=== PATIENT | female | born 1970 | race Caucasian/White ===

== ENCOUNTER 2017-08-27 09:32 | Emergency (ER) | payer SELFPAY ==
[~2017-08-27] VITALS: Ht 167.6 cm; Wt 81.6 kg
[2017-08-27] MEDS ORDERED: ONDA4TAB8 SL (10:14)
--- NOTE | 2017-08-27 10:14 | ED Headache ---
General Chief Complaint: Head/Cervical Problems Stated Complaint: CHA/NAUSEA Nursing Triage Note: PATIENT AMBULATED TO ROOM 6 CO OF [facility]. HAS HX OF MIGRANES Nursing Sepsis Screen: No Definite Risk Source: patient Exam Limitations: no limitations History of Present Illness Time seen by provider: 10:03 Initial Comments This 47-year-old woman presents to the emergency room ambulatory with complaints of posterior headache that started at around 08:00. She has associated nausea. This is not unusual for her headaches. She does have a history of migraines. She has not taken any medications. No vision changes. Allergies and Home Medications Allergies Uncoded Allergies: HAY FEVER (Allergy, Mild, 08/27/17) Home Medications Ondansetron 4 Mg Tab.rapdis, 4 MG SL Q4H PRN for NAUSEA/VOMITING-1ST LINE, #10 Prescribed by: UNIQUE HARPER on 08/27/17 1014 Constitutional: no symptoms reported Eyes: No Symptoms Reported Ears, Nose, Mouth, Throat: no symptoms reported Respiratory: no symptoms reported Cardiovascular: no symptoms reported Gastrointestinal: see HPI Genitourinary: no symptoms reported : No Musculoskeletal: no symptoms reported Skin: no symptoms reported Psychiatric/Neurological: See HPI Past Bcgkbws-Mgktko-Gwcqpf Hx Patient Social History Alcohol Use: Past History Recreational Drug Use: No Smoking Status: Former Smoker Recent Foreign Travel: No Contact w/Someone Who Travel: No Recent Infectious Disease Expo: No Recent Hopitalizations: No Physical Abuse: No Sexual Abuse: No Mistreated: No Fear: No Seasonal Allergies Seasonal Allergies: Yes Surgeries History of Surgeries: No Respiratory History of Respiratory Disorde: No Cardiovascular History of Cardiac Disorders: No Neurological History of Neurological Disord: Yes Neurological Disorders: Headaches /Migraines Reproductive System : No (DEPO SHOT) Genitourinary History of Genitourinary Disor: No Gastrointestinal History of Gastrointestinal Di: No Musculoskeletal History of Musculoskeletal Dis: No Endocrine History of Endocrine Disorders: No HEENT History of HEENT Disorders: No Cancer History of Cancer: No Psychosocial History of Psychiatric Problem: Yes Behavioral Health Disorders: Anxiety, Depression Suicide Risk Score: 0 Blood Transfusions History of Blood Disorders: No Physical Exam Vital Signs Vital Sign - Last 12Hours 08/27/17 09:39 Temp 98.6 Pulse 92 Resp 20 B/P (MAP) 140/92 Pulse Ox 98 O2 Delivery Room Air Capillary Refill : Less Than 3 Seconds General Appearance: WD/WN, no apparent distress HEENT: PERRL/EOMI, normal ENT inspection Neck: normal inspection, other (muscle tension and tenderness in the paraspinous muscles of the neck) Cardiovascular: regular rate, rhythm, no edema, no murmur Respiratory: lungs clear, normal breath sounds, no respiratory distress, no accessory muscle use Extremities: normal inspection, no pedal edema Psychiatric: alert, oriented x 3 Crainal Nerves: normal hearing, normal speech Motor/Sensory: no motor deficit, no sensory deficit Skin: normal color, warm/dry Progress/Results/Core Measures Results/Orders My Orders Orders - UNIQUE ELDER MD Ondansetron Oral Dissolve Tab (Zofran (08/27/17 10:15) Medications Given in ED Current Medications Medications Dose Ordered Sig/Martín Route Start Time Stop Time Status Last Admin Dose Admin Ondansetron HCl 8 mg ONCE ONCE PO 08/27/17 10:15 08/27/17 10:16 DC 08/27/17 10:20 8 MG Vital Signs/I&O Vital Sign - Last 12Hours 08/27/17 08/27/17 09:39 10:22 Temp 98.6 98.6 Pulse 92 92 Resp 20 20 B/P (MAP) 140/92 Pulse Ox 98 98 O2 Delivery Room Air Blood Pressure Mean: 108 Progress Note : Progress Note Patient appears to have a tension headache today typical of her prior headaches. She has associated nausea which she requested a treat. Zofran sublingual was administered. Patient declined Toradol injection and preferred to take oral medications once her nausea was controlled. She is newer to the area and does not have a primary care provider. She was advised to establish with a primary care provider soon as possible. Departure Impression Impression: Primary Impression: Tension type headache Qualified Codes: G44.209 - Tension-type headache, unspecified, not intractable Additional Impression: Nausea Disposition: 01 HOME, SELF-CARE Condition: Improved Departure-Patient Inst. Decision time for Depature: 10:10 Referrals: NO,LOCAL PHYSICIAN (PCP/Family) Primary Care Physician Patient Instructions: Tension Headache (DC) Add. Discharge Instructions: Uses Zofran (ondansetron) as prescribed for nausea and vomiting. You may take ibuprofen up to 800 mg every 8 hours as needed for pain. Add Tylenol (acetaminophen) up to 1000 mg every 6 hours as needed for additional pain relief. Establish with a primary care provider as soon as possible to discuss migraine prevention and management. All discharge instructions reviewed with patient and/or family. Voiced understanding. Scripts Ondansetron (Zofran Odt) 4 Mg Tab.rapdis 4 MG SL Q4H Y for NAUSEA/VOMITING-1ST LINE, #10 TAB Prov: UNIQUE ELDER MD 08/27/17 Work/School Note: Work Release Form Date Seen in the Emergency Department: Aug 27, 2017 Return to Work: Aug 28, 2017 Restrictions: No Restrictions UNIQUE ELDER MD Aug 27, 2017 10:14
[2017-08-27] MEDS ORDERED: ONDANSETRON 4 MG (ZOFRAN) ORAL DISSOLVE TAB PO ONE (10:15)
[2017-08-27 10:22] VITALS: BP 140/92
== END 2017-08-27 10:22 | disposition home or self-care (01) ==
LOC: ER 09:38
DX: G44.209 Tension-type headache, unspecified, not intractable (principal); R11.0 Nausea; F41.9 Anxiety disorder, unspecified; F32.9 Major depressive disorder, single episode, unspecified; Z87.891 Personal history of nicotine dependence
CPT/HCPCS: 99283

== ENCOUNTER 2017-10-29 19:58 | Emergency (ER) | payer SELFPAY ==
[~2017-10-29] VITALS: Ht 167.6 cm; Wt 83.0 kg
[~2017-10-29 19:58] MED LIST: ONDA4TAB8 SL
[2017-10-29] MEDS ORDERED: VALIUM (20:17)
[2017-10-29] MEDS ORDERED: FLONASE (20:17)
[2017-10-29] MEDS ORDERED: ALBUTEROL (20:17)
[2017-10-29] MEDS ORDERED: NEURONTIN (20:17)
[2017-10-29] MEDS ORDERED: ULTRAM (20:17)
[2017-10-29] MEDS ORDERED: EFFEXOR (20:17)
[2017-10-29] MEDS ORDERED: WELLBUTRIN (20:17)
--- NOTE | 2017-10-29 20:24 | ED EENT ---
History of Present Illness General Chief Complaint: Eye Problems Stated Complaint: L EYE VISION LOSS Nursing Triage Note: PT TO ED 6 W/ S.O. FOR C/O SUDDEN ONSET BLINDNESS TO LT EYE. PT REPORTS SHE WAS AT WORK THIS EVENING WHEN SHE THINKS A "BLOOD VESSEL BURST" IN HER LEFT EYE. STATES SHE COULD ONLY SEE A "SPLAT OF PAINT" IN HER FIELD OF VISION ET NOW IT'S IF SHE HAS A "THICK SHEET OF PLASTIC WITH SPOTS ON IT" COVERING HER EYE. PT DENIES ANY INJURY Source: patient History of Present Illness Time seen by provider: 20:05 Initial Comments PT ARRIVES VIA POV STATES SHE WAS AT WORK TODAY AT [employer] IN [place], AND HAD SUDDEN LOSS OF VISION IN LEFT EYE STATES SHE WAS CHECKING PEOPLE OUT AND SUDDENLY IT SEEMED LIKE SHE HAD AN INK SPOT THAT WAS SWIRLING AND GETTING BIGGER, THEN ALL SHE COULD SEE WAS SPOTS, AND NOW IT SEEMS LIKE A SOLID SHEET OF PLASTIC WITH SPOTS ALL OVER IT--CANNOT SEE ANYTHING OUT OF LEFT EYE. NO PAIN TO EYE NO INJURY NO RECENT TRAVEL NO STRENUOUS ACTIVITY, HEAVY LIFTING, ETC. PT WEARS GLASSES AND HAD NOT HAD AN EYE EXAM FOR > 6 YEARS, AND THEN HAD ONE IN NOVEMBER, AND PRESCRIPTION HAD CHANGED IN JUNE SHE HAD INJECTIONS OF UNKNOWN MEDICATION IN RIGHT EYE BECAUSE SHE HAD A "CYST" BEHIND HER RIGHT EYE PT JUST MOVED HERE IN FROM [facility]. NO PCP Allergies and Home Medications Allergies Uncoded Allergies: HAY FEVER (Allergy, Mild, 08/27/17) Home Medications Ondansetron 4 Mg Tab.rapdis, 4 MG SL Q4H PRN for NAUSEA/VOMITING-1ST LINE, #10 Prescribed by: UNIQUE HARPER on 08/27/17 1014 [Albuterol] , (Reported) [Effexor] , (Reported) [Flonase] , (Reported) [Neurontin] , (Reported) [Ultram] , (Reported) [Valium] , (Reported) [Wellbutrin] , (Reported) Review of Systems Constitutional: no symptoms reported Ears: No Symptoms Reported Nose: no symptoms reported Mouth: no symptoms reported Throat: no symptoms reported Respiratory: no symptoms reported Cardiovascular: no symptoms reported Musculoskeletal: no symptoms reported Skin: no symptoms reported Neurological: No Symptoms Reported Hematologic/Lymphatic: No Symptoms Reported Immunological/Allergic: no symptoms reported Past Ohafxzk-Snublt-Pgzhmv Hx Patient Social History Alcohol Use: Denies Use Recreational Drug Use: No Smoking Status: Never a Smoker Recent Foreign Travel: No Contact w/Someone Who Travel: No Recent Infectious Disease Expo: No Recent Hopitalizations: No Physical Abuse: No Sexual Abuse: No Mistreated: No Fear: No Seasonal Allergies Seasonal Allergies: Yes Surgeries History of Surgeries: No Respiratory History of Respiratory Disorde: No Cardiovascular History of Cardiac Disorders: No Neurological History of Neurological Disord: Yes Neurological Disorders: Headaches /Migraines Genitourinary History of Genitourinary Disor: No Gastrointestinal History of Gastrointestinal Di: No Musculoskeletal History of Musculoskeletal Dis: No Endocrine History of Endocrine Disorders: No HEENT History of HEENT Disorders: Yes ("CYST BEHIND RIGHT EYE" . WEARS GLASSES) Cancer History of Cancer: No Psychosocial History of Psychiatric Problem: Yes Behavioral Health Disorders: Anxiety, Depression Suicide Risk Score: 0 Integumentary History of Skin or Integumenta: No Blood Transfusions History of Blood Disorders: No Family Medical History Significant Family History: No Pertinent Family Hx Physical Exam Vital Signs Vital Sign - Last 12Hours 10/29/17 20:00 Temp 98.0 Pulse 93 Resp 18 B/P (MAP) 152/104 (120) Pulse Ox 99 O2 Delivery Room Air General Appearance: WD/WN, no apparent distress Eyes: right eye normal inspection, left eye vision changes, left eye other ( RETINA PARTIALLY OBSCURED ON LEFT, BUT IS LIMITED EXAM. NO HYPHEMA. CONJUNCTIVAL NORMAL), bilateral eye PERRL, bilateral eye EOMI Ears: bilateral ear auricle normal, bilateral ear canal normal, bilateral ear TM normal Nose: normal inspection Neck: normal inspection Cardiovascular: regular rate, rhythm, no murmur Respiratory: normal breath sounds Neurologic/Psychiatric: oracle erp developer II-XII nml as tested, no motor/sensory deficits, alert, normal mood/affect, oriented x 3 Skin: normal color, warm/dry, other (SCABBED WOUNDS TO NOSE) Progress/Results/Core Measures Results/Orders My Orders Orders - LEONEL WEBBER DO Ct Head Wo (10/29/17 20:05) Ct Orbit Wo (10/29/17 20:05) Tropicamide 1% Ophthalmic Soln (Mydriacy (10/29/17 21:45) Tropicamide 1% Ophth Soln (Mydriacyl 1% (10/29/17 21:37) Vital Signs/I&O Vital Sign - Last 12Hours 10/29/17 20:00 Temp 98.0 Pulse 93 Resp 18 B/P (MAP) 152/104 (120) Pulse Ox 99 O2 Delivery Room Air Blood Pressure Mean: 120 Departure Communication (Admissions) Progress Notes 2104--ATTEMPTING TO CONTACT DR. BROWN, MESSAGE LEFT ON CELL PHONE [phone]--SPOKE WITH DR. BROWN, HE WILL CONTACT HIS ON-CALL PARTNER AND HAVE THEM CALL ME BACK [phone]--SPOKE WITH DR. BRANDT, SHE ADVISES TO DILATE PT'S EYE AND SEND DIRECTLY TO OFFICE AND SHE WILL SEE PT THERE. Impression Impression: Primary Impression: Sudden visual loss of left eye Disposition: HOME, SELF-CARE (directly to DR. BRANDT'S OFFICE) Condition: Stable/Unchanged Departure-Patient Inst. Referrals: ESTUARDO COLÓN OD NO,LOCAL PHYSICIAN (PCP) Primary Care Physician Patient Instructions: NO INSTRUCTIONS GIVEN Add. Discharge Instructions: GO DIRECTLY TO DR. BRANDT'S OFFICE DO NOT RUB EYE All discharge instructions reviewed with patient and/or family. Voiced understanding. LEONEL WEBBER DO Oct 29, 2017 20:24
[2017-10-29] MEDS ORDERED: TROPICAMIDE 1% OPH SOLN (MYDRIACYL) 15 ML BTL ONE (21:37)
[2017-10-29 21:43] VITALS: BP 150/106
[2017-10-29] MEDS ORDERED: TROPICAMIDE 1% OPH SOLN (MYDRIACYL) 3 ML BTL OS ONE (21:45)
--- NOTE | 2017-10-30 23:14 | Diagnostic Imaging Report ---
PROCEDURE: CT head without contrast. TECHNIQUE: Multiple contiguous axial images were obtained through the brain without the use of intravenous contrast. INDICATION: Left eye abnormality with blurry vision, abnormal vision. Headache. COMPARISON: None. FINDINGS: The ventricles and cortical sulci are age-appropriate. No acute intracranial hemorrhage is seen. No midline shift is seen. There is no CT evidence of acute territorial ischemia. The calvarium appears intact. The visible paranasal sinuses and mastoid air cells are clear. IMPRESSION: No acute intracranial hemorrhage or CT evidence of acute territorial ischemia. Dictated by: Dictated on workstation # [id number]
--- NOTE | 2017-10-30 23:14 | Diagnostic Imaging Report ---
REASON FOR EXAM: Blurry vision in left eye, worsening. Headache. History of surgery in the right eye. TIME OF EXAM: 10/29/2017 8:33 PM COMPARISON: None TECHNIQUE: Thin section noncontrast-enhanced helical CT images were obtained through the orbits and facial bones. Postprocessed coronal reformats were also reviewed. FINDINGS: This examination demonstrates no evidence of orbital fracture. No periorbital swelling is seen. The adjacent paranasal sinuses are clear. Within the orbits, the globes are symmetric bilaterally. No pre- or post-septal swelling or inflammation is seen. There is no radiopaque foreign body seen. The extraocular muscles are symmetric in size. The retro-orbital intraconal fat is unremarkable. The optic nerves are symmetric bilaterally. The visualized facial bones are intact bilaterally. There is no evidence of significant mucosal thickening in the paranasal sinuses. There are no air-fluid levels. IMPRESSION: Unremarkable CT of the orbits. Dictated by: Dictated on workstation # [id number]
== END 2017-10-29 21:43 | disposition home or self-care (01) ==
LOC: EDUNIT# 19:58 → ER 20:00
DX: H53.132 Sudden visual loss, left eye (principal); G43.909 Migraine, unspecified, not intractable, without status migrainosus; F41.9 Anxiety disorder, unspecified; F32.9 Major depressive disorder, single episode, unspecified
CPT/HCPCS: 70450; 70480; 99282